=== PATIENT | male | born 1995 | race Caucasian/White ===

== ENCOUNTER 2020-05-22 00:31 | Inpatient (IN) | payer OTHER, SELFPAY ==
[2020-05-22 01:21] LABS: BASOPHILS % (AUTO) 0.6 % (0.0-5.0); EOSINOPHILS % (AUTO) 0.2 % (0.0-8.0); HEMATOCRIT 53.4 % (42-54); LYMPHOCYTES % (AUTO) 7.4 % (21.0-51.0); MEAN CORPUSCULAR HEMOGLOBIN 31.2 pg (27.0-33.0); MEAN CORPUSCULAR VOLUME 89.1 fL (79-99); MONOCYTES % (AUTO) 6.8 % (3.0-13.0); NEUTROPHILS % (AUTO) 82.3 % (40.0-77.0); PLATELET COUNT (AUTO) 326 K/uL (130-400); RED BLOOD CELL COUNT(AUTO) 5.99 MIL/uL (4.50-6.20); RED CELL DISTRIBUTION WIDTH 12.2 % (11.0-15.5)
[2020-05-22 01:23] LABS: WHITE BLOOD COUNT (AUTO) 31.8 K/uL (4.8-10.8)
[2020-05-22 01:35] LABS: CREATININE 1.5 mg/dL (0.5-1.5); POTASSIUM 4.1 mmol/L (3.5-5.1)
[2020-05-22 01:40] LABS: BILIRUBIN,TOTAL 0.7 mg/dL (0.2-1.0); TOTAL PROTEIN, SERUM 8.9 g/dL (6.0-8.3)
[2020-05-22] MEDS ORDERED: 0.9%NACL 1000ML 1,000 ML IV ONE ×2 (01:59→05:14)
[2020-05-22 02:12] LABS: BAND NEUTROPHILS % (MANUAL) 11 % (0-2); BASOPHILS % (MANUAL) 1 % (0-2); LYMPHOCYTES % (MANUAL) 5 % (22-44); MAN.DIFF COMMENT-IMPRESSION MANUAL DIFFERENTIAL; METAMYELOCYTES % 4 % (0-0); MONOCYTES % (MANUAL) 6 % (2-9); SEGMENTED NEUTROPHILS % 73 % (40-70)
[2020-05-22] MEDS ORDERED: ONDANSETRON 4MG INJ ONE (02:16)
[2020-05-22] MEDS ORDERED: 0.9%NACL 50ML 50 ML IV ONE (04:14)
[2020-05-22 04:15] LABS: ABG BASE EXCESS -6.2 mmol/L (-2.0-3.0); ABG HCO3 20.3 mmol/L (21.0-28.0); ABG OXYGEN SATURATION 96.3 % (95.0-99.0); ABG PCO2 43 mmHg (35-48)
[2020-05-22 04:43] LABS: APPEARANCE,URINE Clear (CLEAR); BILIRUBIN,URINE Negative (NEGATIVE); COLOR,URINE Yellow (YELLOW); GLUCOSE, URINE (UA) 500 mg/dL (NEGATIVE); KETONES,URINE 15 mg/dL (NEGATIVE); LEUKOCYTE ESTERASE ,URINE Negative (NEGATIVE); NITRATE,URINE Negative (NEGATIVE); OCCULT BLOOD,URINE Small (NEGATIVE); PROTEIN,URINE POS 2+ mg/dL (NEGATIVE); UROBILINOGEN,URINE 0.2 mg/dL (0.2-1.0)
[2020-05-22 04:51] LABS: AMPHET/METH SCREEN,URINE NEGATIVE (NEGATIVE); BARBITURATE SCREEN, URINE NEGATIVE (NEGATIVE); BENZODIAZEPINES SCREEN,URINE NEGATIVE (NEGATIVE); CANNABINOID SCREEN,URINE POSITIVE (NEGATIVE); COCAINE SCREEN,URINE NEGATIVE (NEGATIVE); OPIATE SCREEN,URINE NEGATIVE (NEGATIVE); PHENCYCLIDINE SCREEN,URINE NEGATIVE (NEGATIVE); RBC,URINE 0-1 /HPF (0-1)
[2020-05-22 04:52] LABS: BACTERIA,URINE None Seen /HPF (None Seen); SQUAMOUS EPITHELIAL CELL,UR Rare /HPF (0-2); WBC,URINE 0-1 /HPF (0-1); YEAST,URINE BUDDING None Seen /HPF (None Seen)
[2020-05-22] MEDS ORDERED: DIPHENHYDRAMINE HCL 25 MG CAPSULE PO PRN (05:30)
[2020-05-22] MEDS ORDERED: LORAZEPAM 2 MG/ML 1 ML VIAL IM PRN (05:30)
[2020-05-22] MEDS ORDERED: ACETAMINOPHEN WITH CODEINE 1 TAB TAB PO PRN (05:30)
[2020-05-22] MEDS ORDERED: DiphenhydrAMINE HCL 50 MG/ML VIAL IV PRN (05:30)
[2020-05-22] MEDS ORDERED: ACETAMINOPHEN 325 MG TAB PO PRN ×2 (05:30)
[2020-05-22] MEDS ORDERED: NITROGLYCERIN 0.4 MG SL TAB SL PRN (05:30)
[2020-05-22] MEDS ORDERED: GUAIFENESIN-DM 200/20 MG 10 ML PO PRN (05:30)
[2020-05-22] MEDS ORDERED: ONDANSETRON 4MG INJ IV PRN (05:30)
[2020-05-22] MEDS ORDERED: MAG/ALUM/SIMETH 30 ML UDCUP PO PRN (05:30)
[2020-05-22] MEDS ORDERED: LACTULOSE 20 GM/30 ML UDCUP PO PRN (05:30)
[2020-05-22] MEDS ORDERED: DEXTROSE 50%-WATER 50 ML DISP.SYRIN IV PRN (05:45)
[2020-05-22] MEDS ORDERED: GLUCAGON 1MG KIT 1 MG ML IM PRN (05:45)
[2020-05-22 05:56] LABS: HEMATOCRIT 46.3 % (42-54); MEAN CORPUSCULAR HEMOGLOBIN 30.4 pg (27.0-33.0); MEAN CORPUSCULAR HGB CONC 34.6 g/dL (32.0-36.0); PLATELET COUNT (AUTO) 256 K/uL (130-400); RED BLOOD CELL COUNT(AUTO) 5.26 MIL/uL (4.50-6.20); RED CELL DISTRIBUTION WIDTH 12.2 % (11.0-15.5); WHITE BLOOD COUNT (AUTO) 24.8 K/uL (4.8-10.8)
[2020-05-22] MEDS ORDERED: ZOSYN 3.375GM+NS 50ML 50 ML IV SCH (06:00)
[2020-05-22] MEDS ORDERED: LEVETIRACETAM 500 MG in 0.9%NACL 100ML 100 ML IV SCH (06:00)
[2020-05-22] MEDS ORDERED: VANCOMYCIN PROTOCOL PER PHARMACY IV SCH (06:00)
[2020-05-22 06:02] LABS: HEMOGLOBIN A1C 5.1 % (4.0-6.0)
[2020-05-22 06:06] LABS: BAND NEUTROPHILS % (MANUAL) 11 % (0-2); LYMPHOCYTES % (MANUAL) 2 % (22-44); MAN.DIFF COMMENT-IMPRESSION MANUAL DIFFERENTIAL; METAMYELOCYTES % 1 % (0-0); MONOCYTES % (MANUAL) 11 % (2-9); SEGMENTED NEUTROPHILS % 75 % (40-70)
[2020-05-22 06:07] LABS: PLATELET MORPHOLOGY COMMENT ADEQUATE
[2020-05-22 06:07] LABS: CREATININE 1.5 mg/dL (0.5-1.5)
[2020-05-22 06:20] LABS: ALBUMIN 4.5 g/dL (3.5-5.0); BILIRUBIN,TOTAL 0.7 mg/dL (0.2-1.0); CRP QUANTITATIVE 3.4 mg/L (0.00-9.0); THYROID STIMULATING HORMONE 1.04 uIU/mL (0.36-3.74); TOTAL PROTEIN, SERUM 7.7 g/dL (6.0-8.3)
[2020-05-22] MEDS ORDERED: LEVETIRACETAM 500 MG/5 ML SD VIAL IV ONE (06:36)
[2020-05-22] MEDS ORDERED: 0.9% NACL 250ML 250 ML IV ONE (06:41)
[2020-05-22] MEDS ORDERED: COMPOUND IV MISC 1 EACH IVSOLN MISC PRN (06:45)
[2020-05-22] MEDS ORDERED: CEFTRIAXONE 1G VIAL IV SCH (07:30)
[2020-05-22] MEDS ORDERED: INSULIN HUMULIN R 100 UNIT/ML 3ML SQ SCH (07:30)
[2020-05-22] MEDS ORDERED: ACETAMINOPHEN WITH CODEINE 1 TAB TAB ONE (08:10)
[2020-05-22] MEDS ORDERED: CEFTRIAXONE 1G VIAL ONE (09:12)
== END 2020-05-22 10:54 | disposition left against medical advice (07) | DRG 872 ==
LOC: EDH 00:31 → EDHIP 00:32 → UNDOADMIN 05:24 → EDHIP 05:24
PROVIDERS: ADMIT Family Medicine; ATTEND Family Medicine
DX: A41.9 Sepsis, unspecified organism (principal); E87.2 Acidosis; R56.9 Unspecified convulsions; E11.9 Type 2 diabetes mellitus without complications; M54.5 Low back pain; Z20.822 Contact with and (suspected) exposure to COVID-19; Z91.19 Patient's noncompliance with other medical treatment and regimen
CPT/HCPCS: 36415; 36600; 70450; 71045; 71250; 74176; 80053; 80305; 81001; 82010; 82550; 82803; 82948; 83036; 83605; 84145; 84443; 85025; 86140; 87040; 87426; 93005; G0378; J0696; J1953; J2405; J7030; J7050

== ENCOUNTER 2020-05-22 23:37 | Inpatient (IN) | payer SELFPAY ==
[~2020-05-22] VITALS: Ht 170.2 cm; Wt 69.7 kg
[2020-05-22] MEDS ORDERED: ONDANSETRON HCL 4 MG/2 ML VIAL ONE (23:59)
[2020-05-23 00:21] LABS: APPEARANCE,URINE Clear (CLEAR); BILIRUBIN,URINE Negative (NEGATIVE); COLOR,URINE Yellow (YELLOW); GLUCOSE, URINE (UA) Negative (NEGATIVE); KETONES,URINE 15 mg/dL (NEGATIVE); LEUKOCYTE ESTERASE ,URINE Negative (NEGATIVE); NITRATE,URINE Negative (NEGATIVE); OCCULT BLOOD,URINE Moderate (NEGATIVE); PROTEIN,URINE POS 2+ mg/dL (NEGATIVE); UROBILINOGEN,URINE 0.2 mg/dL (0.2-1.0)
[2020-05-23 00:26] LABS: BASOPHILS % (AUTO) 0.2 % (0.0-5.0); EOSINOPHILS % (AUTO) 0.2 % (0.0-8.0); HEMATOCRIT 45.2 % (42-54); LYMPHOCYTES % (AUTO) 4.6 % (21.0-51.0); MEAN CORPUSCULAR HEMOGLOBIN 30.8 pg (27.0-33.0); MEAN CORPUSCULAR HGB CONC 35.4 g/dL (32.0-36.0); MEAN CORPUSCULAR VOLUME 87.1 fL (79-99); MONOCYTES % (AUTO) 10.4 % (3.0-13.0); NEUTROPHILS % (AUTO) 84.1 % (40.0-77.0); PLATELET COUNT (AUTO) 211 K/uL (130-400); RED BLOOD CELL COUNT(AUTO) 5.19 MIL/uL (4.50-6.20); RED CELL DISTRIBUTION WIDTH 12.2 % (11.0-15.5); WHITE BLOOD COUNT (AUTO) 21.2 K/uL (4.8-10.8)
[2020-05-23 00:28] LABS: CREATININE 4.3 mg/dL (0.5-1.5)
[2020-05-23 00:32] LABS: ALBUMIN 4.5 g/dL (3.5-5.0); INR 1.02 (0.85-1.15); PROTHROMBIN TIME 11.1 SEC (9.6-11.6); TOTAL PROTEIN, SERUM 7.4 g/dL (6.0-8.3)
[2020-05-23 00:33] LABS: PARTIAL THROMBOPLASTIN TIME 23.9 SEC (26.3-35.5)
[2020-05-23 00:33] LABS: BACTERIA,URINE None Seen /HPF (None Seen); MUCUS,URINE Moderate LPF (None Seen); SQUAMOUS EPITHELIAL CELL,UR Moderate /HPF (0-2)
[2020-05-23] MEDS ORDERED: SODIUM CHLORIDE 0.9% 1000ML 1,000 ML IV ONE ×4 (00:56→20:10)
[2020-05-23] MEDS ORDERED: LIDOCAINE HCL 1% 20 ML VIAL ONE (01:16)
[2020-05-23] MEDS ORDERED: ZOSYN 3.375GM+NS 50ML 50 ML IV ONE (01:51)
[2020-05-23] MEDS ORDERED: SODIUM BICARB 50MEQ 50ML VIAL 50 ML ONE (01:51)
[2020-05-23] MEDS ORDERED: CEFTRIAXONE SODIUM 1 GM IVP SCH (02:15)
[2020-05-23 02:23] LABS: AMPHET/METH SCREEN,URINE NEGATIVE (NEGATIVE); BARBITURATE SCREEN, URINE NEGATIVE (NEGATIVE); BENZODIAZEPINES SCREEN,URINE NEGATIVE (NEGATIVE); CANNABINOID SCREEN,URINE POSITIVE (NEGATIVE); COCAINE SCREEN,URINE NEGATIVE (NEGATIVE); OPIATE SCREEN,URINE NEGATIVE (NEGATIVE); PHENCYCLIDINE SCREEN,URINE NEGATIVE (NEGATIVE)
[2020-05-23 02:43] LABS: GLUCOSE, CSF 83 mg/dL (40-70); TOTAL PROTEIN, CSF 59 mg/dL (15-45)
[2020-05-23 02:46] LABS: APPEARANCE,CSF SC (CLEAR); COLOR,CSF PINK (COLORLESS); CSF TUBE NUMBER 1; WHITE BLOOD CELL1,CSF 5 CMM (0-5)
[2020-05-23 02:47] LABS: APPEARANCE2,CSF CLEAR (CLEAR); COLOR2,CSF COLORLESS (COLORLESS); CSF 2ND TUBE NUMBER 4; RED BLOOD CELL1,CSF 70 CMM (0-0)
[2020-05-23] MEDS ORDERED: ONDANSETRON HCL 4 MG/2 ML VIAL ONE ×4 (02:54→20:08)
[2020-05-23 02:55] LABS: LYMPHOCYTES1,CSF 47 %; MONOCYTES1,CSF 5 %; NEUTROPHILS1,CSF 48 %
[2020-05-23] MEDS ORDERED: MAG HYDROX/AL HYDROX/SIMETH ES 30 ML SUSP UDCUP PO PRN (03:15)
[2020-05-23] MEDS ORDERED: NITROGLYCERIN 0.4 MG SL TAB SL PRN (03:15)
[2020-05-23] MEDS ORDERED: GUAIFENESIN-DM 200/20 MG 10 ML PO PRN (03:15)
[2020-05-23] MEDS ORDERED: DIPHENHYDRAMINE HCL 25 MG CAPSULE PO PRN (03:15)
[2020-05-23] MEDS ORDERED: DiphenhydrAMINE HCL 50 MG/ML VIAL IV PRN (03:15)
[2020-05-23] MEDS: LACTATED RINGERS 1000ML 1,000 ML IV SCH ×2 (03:15→12:05)
[2020-05-23] MEDS ORDERED: LACTULOSE 20 GM/30 ML UDCUP PO PRN (03:15)
[2020-05-23] MEDS ORDERED: CEFTRIAXONE SODIUM 1 GM ONE (03:37)
[2020-05-23] MEDS ORDERED: SODIUM CHLORIDE 0.9% 1000ML 3,000 ML IV ONE (08:53)
[2020-05-23 09:17] LABS: BASOPHILS % (AUTO) 0.2 % (0.0-5.0); EOSINOPHILS % (AUTO) 0.1 % (0.0-8.0); HEMATOCRIT 42.5 % (42-54); LYMPHOCYTES % (AUTO) 5.2 % (21.0-51.0); MEAN CORPUSCULAR HEMOGLOBIN 30.3 pg (27.0-33.0); MEAN CORPUSCULAR HGB CONC 33.9 g/dL (32.0-36.0); MEAN CORPUSCULAR VOLUME 89.3 fL (79-99); MONOCYTES % (AUTO) 9.7 % (3.0-13.0); NEUTROPHILS % (AUTO) 84.3 % (40.0-77.0); PLATELET COUNT (AUTO) 195 K/uL (130-400); RED BLOOD CELL COUNT(AUTO) 4.76 MIL/uL (4.50-6.20); RED CELL DISTRIBUTION WIDTH 12.3 % (11.0-15.5); WHITE BLOOD COUNT (AUTO) 18.6 K/uL (4.8-10.8)
[2020-05-23 09:32] LABS: CREATININE 4.6 mg/dL (0.5-1.5); POTASSIUM 4.1 mmol/L (3.5-5.1)
[2020-05-23 09:45] LABS: ALBUMIN 3.5 g/dL (3.5-5.0); BILIRUBIN,DIRECT 0.3 mg/dL (0.0-0.3); BILIRUBIN,TOTAL 0.9 mg/dL (0.2-1.0); TOTAL PROTEIN, SERUM 6.3 g/dL (6.0-8.3)
[2020-05-23 13:26] LABS: PROTEIN,URINE RANDOM 103.1 mg/dL (0-11.9)
[2020-05-23] MEDS ORDERED: DiphenhydrAMINE HCL 50 MG/ML VIAL ONE (21:35)
[2020-05-23 21:55] VITALS: BP 152/96
[2020-05-23 23:29] VITALS: BP 137/97
[2020-05-24] MEDS ORDERED: LACTATED RINGERS 1000ML 1,000 ML IV ONE (00:06)
[2020-05-24] MEDS: LACTATED RINGERS 1000ML 1,000 ML IV SCH ×3 (00:15→13:35)
[2020-05-24] MEDS: ONDANSETRON HCL 4 MG/2 ML VIAL IV PRN ×4 (01:58→21:33)
[2020-05-24 03:08] VITALS: BP 144/85
[2020-05-24 05:48] LABS: BASOPHILS % (AUTO) 0.1 % (0.0-5.0); HEMATOCRIT 42.2 % (42-54); LYMPHOCYTES % (AUTO) 4.5 % (21.0-51.0); MEAN CORPUSCULAR HEMOGLOBIN 30.4 pg (27.0-33.0); MEAN CORPUSCULAR HGB CONC 34.1 g/dL (32.0-36.0); MEAN CORPUSCULAR VOLUME 89.2 fL (79-99); MONOCYTES % (AUTO) 8.9 % (3.0-13.0); PLATELET COUNT (AUTO) 178 K/uL (130-400); RED BLOOD CELL COUNT(AUTO) 4.73 MIL/uL (4.50-6.20); RED CELL DISTRIBUTION WIDTH 12.3 % (11.0-15.5); WHITE BLOOD COUNT (AUTO) 14.7 K/uL (4.8-10.8)
[2020-05-24 06:13] LABS: BILIRUBIN,TOTAL 0.8 mg/dL (0.2-1.0); CREATININE 4.4 mg/dL (0.5-1.5); POTASSIUM 4.3 mmol/L (3.5-5.1); TOTAL PROTEIN, SERUM 5.8 g/dL (6.0-8.3)
[2020-05-24 09:19] VITALS: BP 166/91
[2020-05-24 11:00] VITALS: BP 153/86
[2020-05-24] MEDS: ACETAMINOPHEN 325 MG TAB PO PRN (15:48)
[2020-05-24] MEDS: SODIUM CHLORIDE 0.9% 1000ML 1,000 ML IV SCH ×2 (16:07→21:37)
[2020-05-24 16:33] VITALS: BP 145/106
[2020-05-24 19:53] VITALS: BP 153/84
[2020-05-24] MEDS: SODIUM BICARBONATE 650 MG TAB PO SCH (21:32)
[2020-05-24 23:04] VITALS: BP 159/86
[2020-05-25 03:16] VITALS: BP 152/92
[2020-05-25] MEDS: SODIUM CHLORIDE 0.9% 1000ML 1,000 ML IV SCH ×4 (04:59→23:33)
[2020-05-25 06:54] LABS: BASOPHILS % (AUTO) 0.2 % (0.0-5.0); EOSINOPHILS % (AUTO) 0.2 % (0.0-8.0); HEMATOCRIT 40.3 % (42-54); LYMPHOCYTES % (AUTO) 6.7 % (21.0-51.0); MEAN CORPUSCULAR HEMOGLOBIN 30.1 pg (27.0-33.0); MEAN CORPUSCULAR VOLUME 86.1 fL (79-99); MONOCYTES % (AUTO) 11.4 % (3.0-13.0); NEUTROPHILS % (AUTO) 81.1 % (40.0-77.0); PLATELET COUNT (AUTO) 205 K/uL (130-400); RED BLOOD CELL COUNT(AUTO) 4.68 MIL/uL (4.50-6.20); RED CELL DISTRIBUTION WIDTH 12.1 % (11.0-15.5); WHITE BLOOD COUNT (AUTO) 12.8 K/uL (4.8-10.8)
[2020-05-25 07:12] LABS: CREATININE 2.9 mg/dL (0.5-1.5); POTASSIUM 3.4 mmol/L (3.5-5.1)
[2020-05-25 08:00] VITALS: BP 160/99
[2020-05-25] MEDS: SODIUM BICARBONATE 650 MG TAB PO SCH ×3 (09:18→20:52)
[2020-05-25 11:00] VITALS: BP 162/98
[2020-05-25] MEDS: ONDANSETRON HCL 4 MG/2 ML VIAL IV PRN ×2 (11:58→20:52)
[2020-05-25] MEDS ORDERED: POTASSIUM CHLORIDE 10MEQ/100ML 100 ML IV PRN (14:00)
[2020-05-25] MEDS ORDERED: LIDOCAINE HCL-MPF 1% 2ML VIAL IV PRN (14:00)
[2020-05-25] MEDS ORDERED: POTASSIUM CHLORIDE 10% ELIXIR 20 MEQ/15 ML UDCUP PO PRN (14:00)
[2020-05-25] MEDS: ACETAMINOPHEN 325 MG TAB PO PRN (15:05)
[2020-05-25] MEDS ORDERED: ACETAMINOPHEN-CODEINE 300/30MG TAB PO PRN ×2 (15:15)
[2020-05-25 16:38] VITALS: BP 162/98
[2020-05-25] MEDS: CEFTRIAXONE SODIUM 1 GM IVP SCH (18:10)
[2020-05-25] MEDS: POTASSIUM CHLORIDE 20 MEQ ERTAB PO PRN (18:11)
[2020-05-25 19:46] VITALS: BP 160/97
[2020-05-25 23:55] VITALS: BP 161/99
[2020-05-26 03:55] VITALS: BP 182/99
[2020-05-26] MEDS ORDERED: LABETALOL 20 MG/4 ML DISP.SYRIN IV PRN (04:30)
[2020-05-26] MEDS ORDERED: LABETALOL HCL 5 MG/ML 20ML VIAL IV ONE (05:01)
[2020-05-26] MEDS: ONDANSETRON HCL 4 MG/2 ML VIAL IV PRN ×2 (05:10→14:56)
[2020-05-26 05:37] LABS: HEMATOCRIT 38.7 % (42-54); MEAN CORPUSCULAR HGB CONC 35.9 g/dL (32.0-36.0); MEAN CORPUSCULAR VOLUME 86.4 fL (79-99); PLATELET COUNT (AUTO) 210 K/uL (130-400); RED BLOOD CELL COUNT(AUTO) 4.48 MIL/uL (4.50-6.20); RED CELL DISTRIBUTION WIDTH 12.1 % (11.0-15.5); WHITE BLOOD COUNT (AUTO) 10.3 K/uL (4.8-10.8)
[2020-05-26 06:07] LABS: MAGNESIUM 1.5 mg/dL (1.80-2.40); POTASSIUM 3.5 mmol/L (3.5-5.1)
[2020-05-26 07:05] LABS: EOSINOPHILS % (MANUAL) 2 % (1-6); LYMPHOCYTES % (MANUAL) 9 % (22-44); MAN.DIFF COMMENT-IMPRESSION MANUAL DIFFERENTIAL; MONOCYTES % (MANUAL) 6 % (2-9); PLATELET MORPHOLOGY COMMENT ADEQUATE; SEGMENTED NEUTROPHILS % 83 % (40-70)
[2020-05-26 07:30] VITALS: BP 164/99
[2020-05-26] MEDS: METOPROLOL TARTRATE 25 MG TAB PO SCH ×2 (08:47→19:48)
[2020-05-26] MEDS: SODIUM BICARBONATE 650 MG TAB PO SCH ×3 (08:47→19:48)
[2020-05-26 11:00] VITALS: BP 152/96
[2020-05-26] MEDS: POTASSIUM CHLORIDE 20 MEQ ERTAB PO PRN (12:32)
[2020-05-26] MEDS: MAGNESIUM 2GM PREMIX 50ML 50 ML IV PRN (12:32)
[2020-05-26] MEDS: ACETAMINOPHEN 325 MG TAB PO PRN ×2 (12:40→23:29)
[2020-05-26] MEDS: SODIUM CHLORIDE 0.9% 1000ML 1,000 ML IV SCH ×2 (14:25→22:23)
[2020-05-26 16:00] VITALS: BP 152/94
[2020-05-26] MEDS: CEFTRIAXONE SODIUM 1 GM IVP SCH (18:34)
[2020-05-26 19:44] VITALS: BP 146/86
[2020-05-26 23:12] VITALS: BP 168/99
[2020-05-27 00:23] VITALS: BP 158/94
[2020-05-27 03:15] VITALS: BP 163/99
[2020-05-27] MEDS: SODIUM CHLORIDE 0.9% 1000ML 1,000 ML IV SCH (03:19)
[2020-05-27 05:07] LABS: BASOPHILS % (AUTO) 0.5 % (0.0-5.0); EOSINOPHILS % (AUTO) 4.2 % (0.0-8.0); HEMATOCRIT 41.8 % (42-54); LYMPHOCYTES % (AUTO) 15.7 % (21.0-51.0); MEAN CORPUSCULAR HEMOGLOBIN 29.9 pg (27.0-33.0); MEAN CORPUSCULAR HGB CONC 34.9 g/dL (32.0-36.0); MEAN CORPUSCULAR VOLUME 85.7 fL (79-99); MONOCYTES % (AUTO) 11.8 % (3.0-13.0); NEUTROPHILS % (AUTO) 67.2 % (40.0-77.0); PLATELET COUNT (AUTO) 220 K/uL (130-400); RED BLOOD CELL COUNT(AUTO) 4.88 MIL/uL (4.50-6.20); RED CELL DISTRIBUTION WIDTH 11.8 % (11.0-15.5); WHITE BLOOD COUNT (AUTO) 9.6 K/uL (4.8-10.8)
[2020-05-27 05:41] LABS: CREATININE 1.7 mg/dL (0.5-1.5); MAGNESIUM 1.7 mg/dL (1.80-2.40); POTASSIUM 3.4 mmol/L (3.5-5.1)
[2020-05-27] MEDS: MAGNESIUM 2GM PREMIX 50ML 50 ML IV PRN (06:33)
[2020-05-27] MEDS: POTASSIUM CHLORIDE 20 MEQ ERTAB PO PRN (06:33)
[2020-05-27] MEDS: ONDANSETRON HCL 4 MG/2 ML VIAL IV PRN (06:36)
[2020-05-27 08:26] VITALS: BP 162/105
[2020-05-27] MEDS ORDERED: METOPROLOL TARTRATE 25 MG TAB PO SCH (09:00)
[2020-05-27 12:21] VITALS: BP 165/111
[2020-05-27 16:42] VITALS: BP 156/106
[2020-05-27] MEDS ORDERED: LEVETIRACETAM 500 MG TABLET PO SCH (21:00)
== END 2020-05-27 18:00 | disposition left against medical advice (07) | DRG 871 ==
LOC: EDH 23:37 → EDHIP 23:38 → 3BH 05-23 20:57
PROVIDERS: ADMIT Family Medicine; ATTEND Family Medicine
DX: A41.9 Sepsis, unspecified organism (principal); G93.41 Metabolic encephalopathy; M62.82 Rhabdomyolysis; N17.9 Acute kidney failure, unspecified; E87.2 Acidosis; F12.10 Cannabis abuse, uncomplicated; I12.9 Hypertensive chronic kidney disease with stage 1 through stage 4 chronic kidney disease, or unspecified chronic kidney disease; E86.0 Dehydration; N18.9 Chronic kidney disease, unspecified; G40.909 Epilepsy, unspecified, not intractable, without status epilepticus; N30.90 Cystitis, unspecified without hematuria; Z91.19 Patient's noncompliance with other medical treatment and regimen
CPT/HCPCS: 36415; 70551; 71045; 76770; 80048; 80053; 80076; 80305; 82550; 82570; 82945; 83605; 83690; 83735; 84145; 84156; 84157; 84165; 84484; 85025; 85610; 85730; 86160; 86255; 86900; 86901; 87040; 87071; 87088; 87147; 87205; 87252; 87483; 89051; 93005; G0378; J0696; J1200; J2405; J2543; J3475; J3490; J7030; J7120